=== PATIENT | female | born 1950 | race Caucasian/White ===

== ENCOUNTER 2022-07-24 22:30 | Inpatient (IN) | payer MEDICARE, OTHER, SELFPAY ==
[2022-07-24 22:41] VITALS: BP 134/98; PULSE 143; RESP 32; TEMP 37.2; O2SAT 93; BMI 32.0
[2022-07-24 23:06] VITALS: BP 125/84; PULSE 143; RESP 28; TEMP 37.2; O2SAT 94
--- NOTE | 2022-07-24 23:06 | CRLHL7_ITS ---
For Patients: As a result of the Century Cures Act, medical imaging exams and procedure reports are released immediately into your electronic medical record. You may view this report before your referring provider. If you have questions, please contact your health care provider. INDICATION: Shortness of breath TECHNIQUE: Single view chest. Comparison 01/14/2020 chest x-ray FINDINGS: The lungs are clear. The heart, mediastinum and pulmonary vessels are of normal size. There is no evidence of pleural disease. IMPRESSION: Negative chest. Dictated by Leslie Portillo MD @ 07/25/2022 12:40:26 AM (Electronically Signed)
--- NOTE | 2022-07-24 23:06 | PM.IMHP1 ---
Hospitalist- H&P: HPI History of Present Illness Date Seen: 07/25/22 Chief complaint: Hard time breathing, copd/fever at 104.2 Narrative: Marguerite Almaraz is a 72 year old female who was brought to the ER by her daughter for 2 days of illness. Marguerite started feeling poorly yesterday with a fever and headache. She has also had a cough and notes that her chest will occasionally burn during coughing paroxysms. Today, she began having more shortness of breath. She used nebs an Aleve for symptom management. Daughter came to visit to do a home COVID test (which was negative), and noted that her mom felt very warm. Temporal temperature at that time was 104. They gave Marguerite Tylenol and came to the emergency department. ED Course and findings: - tachypneic and tachycardic on ED arrival - mildly elevated CO2 on ABG - given a neb and 125mg of Solumedrol - Metoprolol 5mg IV for tachycardia, effective - + for Influenza A Patient has a long history of oxygen dependent COPD. She typically wears 2 L of supplemental oxygen at home, turned this up to 3 L prior to ER arrival. She has had multiple COPD hospitalizations, has never required intubation. She had previously seen Pulmonology at [place], now has COPD medications managed by her PCP, Dr. Davis - on daily Prednisone and Azithyromycin, in addition to Symbicort and nebs. Notes no history of heart disease, but TTE in 2016 exhibited mildly reduced LVEF at 50-55%. Metoprolol has been added to her medication regimen as an outpatient for sinus tachycardia. Lives with her son, daughter Kelly would be medical decision maker if needed. Patient is a former smoker, nonETOH user. Marguerite requests Full Code status after discussing risks/benefits of intubation. She has anxiety and doesn't know if she would tolerate BIPAP well. Review of Systems Status of ROS: Reports: 10 or more systems reviewed and unremarkable except as noted in History and below Narrative: Patient specifically denies any GI concerns or chest pain. She has chronically dry skin. [facility] Medical History (Updated 07/25/22 @ 00:49 by Bailey Garcia MD) Chest wall pain CHF (congestive heart failure) Chronic sinusitis Community acquired pneumonia (04/26/13) Congestive heart failure COPD (chronic obstructive pulmonary disease) Encounter for counseling regarding advance directives (05/10/19) Herpes labialis Hyperlipidemia Long-term current use of steroids MRSA (methicillin resistant staph aureus) culture positive On home O2 Otitis media Sinus tachycardia Tubular adenoma of colon Surgical History History of colonoscopy History of hysterectomy (04/26/13) Family History Mother Alzheimers disease Sister Crohn's disease Multiple sclerosis Father Diabetes Heart disease Other Colon cancer Social History Narrative: SOCIAL HISTORY: She is as of about 3 years ago. She is retired from [employer]. She is here with her sister as usual. They are very close. She continues to live in [place]. Four children. HABITS: No tobacco, alcohol, recreational drug use. No regular exercise. She is able to walk the as of a grocery store if she goes slowly. She is on oxygen. FAMILY HISTORY: Sister from multiple sclerosis in COPD 2 years ago. Another siblings with Crohn's disease. Mother of Alzheimer's. Father with heart issues, diabetes, pacemaker. He of unknown cause. Smoking Status: Never smoker Little interest or pleasure in doing things: not at all Feeling down, depressed, or hopeless: not at all Meds Home Medications and Allergies Home Medications Medication Instructions Recorded Confirmed Type azithromycin 250 mg tablet 250 mg PO DAILY 07/24/22 07/24/22 History prednisone 5 mg tablet 5 mg PO DAILY 07/24/22 07/24/22 History Home Medication Comments: - incomplete list. Also on Metoprolol 25mg BID and Symbicort + prn Duonebs and Albuterol Allergies Allergy/AdvReac Type Severity Reaction Status Date / Time atorvastatin Allergy Mild Muscle Verified 06/01/22 13:37 pain and weakness Exam Narrative: Exam Narrative: GEN: Alert and sitting in hospital bed. She is tachypneic, able to provide 2-3 word answers CV: Sinus tachycardia with rate in the 130s, no murmurs noted R: Tachypnea, decreased breath sounds bilateral bases. No rales Ext: wwp, no concerning edema Skin: Scattered bruising on upper extremities, no ankle edema Neuro: No focal deficits Psych: Appropriate Const: Vital Signs, click to edit/add: Vital Signs - 24 hr 07/24/22 22:41 07/24/22 22:39 Temperature 99.0 F Pulse Rate [Right Pulse Oximeter] 143 H Respiratory Rate 32 H Blood Pressure [Ri ght Upper Arm] 134/98 H Pulse Oximetry 93 Oxygen Delivery Me thod Nasal Cannula Nasal Cannula Oxygen Flow Rate 2 Assessment and Plan Assessment and plan (1) Acute on chronic respiratory failure with hypoxia and hypercapnia: Problem comment: - typically wears supplemental oxygen at 2 L per nasal cannula Status: Acute (2) Chronic obstructive pulmonary disease: Problem comment: - GOLD D - Has seen [facility] in the past Status: Acute (3) Sinus tachycardia: Problem comment: - chronic, on Metoprolol BID as an outpatient. Missed dose 07/24 HS, given IV Metoprolol in ED Status: Acute (4) Long-term current use of steroids: Status: Acute (5) Influenza A: Problem comment: - Tamiflu initiated 07/25 0100 Status: Acute Plan - admit to the hospital - high dose steroids, Tamiflu, home COPD medications + prn neb treatments - given severe disease in daily prednisone use as an outpatient, will treat with Zosyn - SCDs and Lovenox for prophylaxis - full code status requested - daughter Kelly updated at bedside, questions answered
[2022-07-24 23:07] VITALS: RESP 28; O2SAT 2
--- OUTSIDE RECORDS SUMMARY | 2022-07-24 23:18 | XMS_ITS | Clinical Summary ---
:1950 Author Organization [facility] [place] [address] Care Team Providers Name Role Phone Palomo Davis MD Primary Care Provider Allergies No known active allergies Medications Medication Sig Dispensed Refills Start Date End Date Status PROAIR HFA 90 0 05/27/2015 Activ e mcg/actuation inhaler SYMBICORT 80-4.5 0 05/15/2015 Ac tive mcg/actuation (80-4.5 mcg each actuation) inhaler MICROSPACER 0 05/15/2015 Active albuterol-ipratropium 0 06/03/2015 Active (DUONEB) (2.5-0.5 mg) in 3 mL NEBULIZATION solution predniSONE (DELTASONE) Take 1 tablet by 0 06/27/2018 Active 5 mg tablet mouth once daily with a meal. Active Problems Problem Noted Date Hyperopia of both eyes with astigmatism and presbyopia 01/23/2021 Nuclear senile cataract of both eyes 06/27/2018 Family History Medical History Relation Name Comments Genetic Other Father Diabetes Relation Name Status Comments Other Social History Tobacco Use Types Packs/Day Years Used Date Former Smoker Cigarettes 0.5 20 Quit: 06/07/20 14 Smokeless Tobacco: Never Used Comments: Smoking History Packs/day: .5p pd Alcohol Use Standard Drinks/Week Comments Not Asked 0 (1 standard drink = 0.6 oz pure alcoho l) Sex Assigned at Date Recorded Not on file Obstetrics History Last Filed Vital Signs Vital Sign Reading Time Taken Comments Blood Pressure 124/79 06/27/2018 2:58 PM PATIENT SERVICE SPECIALIST Pulse 91 06/27/2018 2:58 PM PATIENT SERVICE SPECIALIST Temperature - - Respiratory Rate - - Oxygen Saturation - - Inhaled Oxygen Concentration - - Weight - - Height - - Body Mass Index - - Plan of Treatment Health Maintenance Due Date Last Done Comments COVID-19 vaccine series (#1) 1950 Tdap 01/04/1963 Depression screening for age 12+ 1964 BMI (ht and wt on same day) for age 18+ 01/04/1970 Hepatitis C screening for age 18-79 01/04/1970 Tetanus booster 1972 Colonoscopy through age 75 01/04/1997 Lipids for age 45-75 01/04/1997 Mammogram for age 45-75 01/04/1997 Zoster (shingles) series for age 50+ (1 of 2) 01/04/2002 DEXA/DXA scan for age 65+ 01/04/2017 Medicare Wellness for age 65+ 01/04/2017 Pneumococcal series for age 65+ (1 - PCV) 01/04/2017 Influenza for age 65+ 04/16/2022 Results Not on filefrom Last 3 Months Insurance Payer Benefit Plan / Subscriber ID Effective Dates Phone Addre ss Type Group MEDICARE - PB MEDICARE PB ONLY [id number] 2016-[employer] ATTN: CLAIMS USE ONLY t [address] [facility] [place] [phone] COMM[employer]CIAL COMMERCIAL [id number] 2018-Presen [address] [place] [address] Care Teams Mandrel Puller Relationship Specialty Start Date End Date Palomo Davis MD PCP - General Family Practice 06/27/[address] [place] [phone]
[2022-07-24] MEDS: IPRAT-ALBUT 0.5-2.5 MG/3 ML NEB 1 NEB IH (23:34)
[2022-07-24] MEDS: METHYLPREDNISOLONE SOD SUCC 62.5 MG/ML (125) 125 MG IVP (23:34)
[2022-07-24 23:46] LABS: ABG PCO2 51 mmHG (35-45); Base Excess ABG 7.2 mmol/L (-3.0-3.0); Carboxyhemoglobin* 1.1 % (0.0-5.0); HCO3 ABG 33 mmol/L (21-28); Lactate* 0.9 mmol/L (0.5-1.9); Oxygen Saturation ABG 96 % (92-100); PO2 ABG 72.2 mmHG (80-105); TCO2 ABG 29 mmol/l (21-30); pH ABG 7.42 (7.35-7.45)
[2022-07-24 23:51] LABS: Basophils Percent Auto 0.1 % (0.0-3.0); Eosinophils Percent Auto 0.1 % (0.0-7.0); Hematocrit 43.7 % (33.0-51.0); Hemoglobin* 13.9 gm/dL (12.0-16.0); Immature Granulocytes Pct Auto 0.9 %; Lymphocytes Percent Auto 3.8 % (20-44); Mean Corpuscular HGB Conc 32 gm/dL (32-36); Mean Corpuscular Hemoglobin 29 pg (26-34); Mean Corpuscular Volume 92 fL (80-100); Monocytes Percent Auto 7.6 % (0.0-11.0); Neutrophils Percent Auto 87.5 % (42.0-72.0); Platelet Count* 178 K/uL (140-440); Red Blood Count 4.74 m/uL (4.00-5.20); White Blood Count* 14.89 K/uL (4.50-11.00)
[2022-07-24 23:55] VITALS: PULSE 130; O2SAT 92
[2022-07-24 23:57] LABS: Slide Review Reflex No
[2022-07-25] VITALS (18 sets, daily range): BP systolic 114–151; BP diastolic 64–97; PULSE 73–143; RESP 18–34; TEMP 36.6–37.2; O2SAT 89–95; BMI 31.0
[2022-07-25] MEDS: METOPROLOL TARTRATE 1 MG/ML inj 5 MG IVP (00:04)
[2022-07-25] MEDS: ACETAMINOPHEN 500 MG TABLET PO (00:04)
[2022-07-25 00:09] LABS: Chloride* 93 mmol/L (96-114)
[2022-07-25 00:10] LABS: Potassium* 3.7 mmol/L (3.6-5.1); Sodium* 134 mmol/L (135-149)
[2022-07-25 00:12] LABS: Creatinine* 0.9 mg/dL (0.5-1.5); Estimated Glomerular Filt Rate 69 ml/min
[2022-07-25 00:13] LABS: Blood Urea Nitrogen* 14 mg/dL (7-30); Carbon Dioxide* 34 mmol/L (20-32); Glucose* 130 mg/dL (60-115)
[2022-07-25 00:14] LABS: Calcium* 9.3 mg/dL (8.4-10.6)
[2022-07-25 00:16] LABS: C Reactive Protein* 6.9 mg/dL (0.5-1.0)
--- NOTE | 2022-07-25 00:25 | ED.SOB ---
HPI - SOB/Dyspnea General Date Seen: 07/24/22 Chief Complaint: Shortness of Breath/Dyspnea Stated Complaint: Hard time breathing, copd/fever at 104.2 Time Seen by Provider: 07/24/22 22:49 Source: patient and family Mode of arrival: ambulatory Limitations: no limitations History of Present Illness HPI Narrative: Patient is 72-year-old female with known COPD on chronic oxygen 2-3 L, presents here with worsening of her shortness of breath, and fever at home of 102 taken temporally. She did not receive the flu shot this year and she has only had 2 of her total immunizations for COVID. She has a chronic steroid user, has not really been hospitalized for her COPD, for the last 5 years. She is also on chronic Zithromax. Denies shortness of breath nausea vomiting leg swelling, does have a bit of a sore throat and runny nose and a cough. MD elicited complaint: shortness of breath and cough Pertinent past history: COPD Onset (ago): day(s) Timing: constant Severity: moderate Exacerbating factors: lying flat Relieving factors: bronchodilators and upright position Known history of: COPD Related Data Home oxygen amount: 2 liters Home Medications Medication Instructions Recorded Confirmed azithromycin 250 mg tablet 250 mg PO DAILY 07/24/22 07/24/22 prednisone 5 mg tablet 5 mg PO DAILY 07/24/22 07/24/22 Previous Rx's Medication Instructions Recorded albuterol sulfate 90 mcg/actuation 2 puff inhalation Q4-6H PRN 06/01/22 aerosol inhaler shortness of breath or wheezing #8.5 grams budesonide-formoterol HFA 160 2 puff inhalation BID #3 ea 06/01/22 mcg-4.5 mcg/actuation aerosol inhaler ipratropium 0.5 mg-albuterol 3 mg 1 ml inhalation QID #360 mL 06/01/22 (2.5 mg base)/3 mL nebulization soln metoprolol tartrate 25 mg tablet 25 mg PO BID #180 tabs 06/01/22 Allergies Allergy/AdvReac Type Severity Reaction Status Date / Time atorvastatin Allergy Mild Muscle Verified 06/01/22 13:37 pain and weakness Review of Systems Status of ROS: Reports: 10 or more systems reviewed and unremarkable except as noted in History and below [facility] Medical History (Updated 07/25/22 @ 01:04 by Lacho Sandoval MD) Chest wall pain CHF (congestive heart failure) Chronic sinusitis Community acquired pneumonia (04/26/13) Congestive heart failure COPD (chronic obstructive pulmonary disease) Encounter for counseling regarding advance directives (05/10/19) Herpes labialis Hyperlipidemia Long-term current use of steroids MRSA (methicillin resistant staph aureus) culture positive On home O2 Otitis media Sinus tachycardia Tubular adenoma of colon Surgical History History of colonoscopy History of hysterectomy (04/26/13) Family History Mother Alzheimers disease Sister Crohn's disease Multiple sclerosis Father Diabetes Heart disease Other Colon cancer Social History Narrative: SOCIAL HISTORY: She is as of about 3 years ago. She is retired from [employer]. She is here with her sister as usual. They are very close. She continues to live in [place]. Four children. HABITS: No tobacco, alcohol, recreational drug use. No regular exercise. She is able to walk the as of a grocery store if she goes slowly. She is on oxygen. FAMILY HISTORY: Sister from multiple sclerosis in COPD 2 years ago. Another siblings with Crohn's disease. Mother of Alzheimer's. Father with heart issues, diabetes, pacemaker. He of unknown cause. Smoking Status: Never smoker Little interest or pleasure in doing things: not at all Feeling down, depressed, or hopeless: not at all Exam Narrative: Exam Narrative: Patient is seen in room 8, she is able to talk to me in almost full sentences, pupils are equal round reactive to light, TMs are normal oropharynx is normal, a bit of a alexi complexion, I can hear air flow bilaterally in her lungs, I do not hear any wheezing, and she overall she has poor or prolonged expiratory phase, she also has a barrel chest, heart sounds S1-S2 are normal, she appears to be tachycardic but I do not hear any murmurs. Her abdomen is soft there is no guarding no organomegaly, no tenderness to palpation, no masses, lower extremities reveal no pitting edema swelling, she was all extremities independently well, with normal power proximally and distally, skin reveals no petechiae rashes, she is alert and oriented x3. Const: Vital Signs, click to edit/add: Vital Signs - 24 hr 07/24/22 22:41 07/24/22 22:39 07/24/22 23:07 Temperature 99.0 F Pulse Rate Pulse Rate [Right Pulse Oximeter] 143 H Respiratory Rate 32 H 28 H Blood Pressure Blood Pressure [Ri ght Upper Arm] 134/98 H Pulse Oximetry 93 2 L Oxygen Delivery Me thod Nasal Cannula Nasal Cannula Nasal Cannula Oxygen Flow Rate 2 2 07/24/22 23:55 07/25/22 00:00 07/25/22 00:04 Temperature Pulse Rate 130 H 122 H 125 H Pulse Rate [Right Pulse Oximeter] Respiratory Rate Blood Pressure 126/71 Blood Pressure [Ri ght Upper Arm] Pulse Oximetry 92 92 91 Oxygen Delivery Me thod Oxygen Flow Rate 07/25/22 00:05 07/25/22 00:15 07/24/22 23:06 Temperature 99.0 F Pulse Rate 124 H 101 H Pulse Rate [Right Pulse Oximeter] 143 H Respiratory Rate 28 H Blood Pressure Blood Pressure [Ri ght Upper Arm] 125/84 Pulse Oximetry 92 94 94 Oxygen Delivery Me thod Nasal Cannula Oxygen Flow Rate 2 Documenting provider has reviewed patient's vital signs: yes Course Reevaluation(s) Reevaluation #1: I had from [facility] come and see her, she will admit her overnight to the hospital, for nebulize treatments, stress dose steroids, Tamiflu, further treatment Vital Signs Vital signs: Initial Vital Signs Oxygen Delivery Method 07/24/22 22:39 Oxygen Flow Rate 2 07/24/22 22:39 Vital Signs Oxygen Delivery Method 07/24/22 22:39 Oxygen Flow Rate 2 07/24/22 22:39 Temperature 97.8 F 07/25/22 01:26 Pulse Rate 143 H 07/25/22 01:11 Respiratory Rate 28 H 07/25/22 01:11 Blood Pressure 125/84 07/25/22 01:11 Pulse Oximetry 94 07/25/22 00:44 Oxygen Delivery Method 07/24/22 23:07 Oxygen Flow Rate 2 07/24/22 23:07 MDM - SOB/Dyspnea MDM Narrative Medical decision making narrative: Life-threatening differential diagnosis includes occluded COPD exacerbation, pulmonary edema, acute coronary syndromes, pulmonary embolism, pneumonia, and pneumothorax. Other differential diagnosis considerations include asthma, bronchitis as well as other etiologies Medical Records Attestation: I reviewed the patient's medical records. Lab Data Attestation: I reviewed the patient's lab results. Labs: Lab Results 07/24/22 07/24/22 07/24/22 Range/Units 22:38 23:25 23:30 WBC 14.89 H (4.50-11.00) K/uL RBC 4.74 (4.00-5.20) m/uL Hgb 13.9 (12.0-16.0) gm/dL Hct 43.7 (33.0-51.0) % MCV 92 (80-100) fL MCH 29 (26-34) pg MCHC 32 (32-36) gm/dL RDW Coeff of Wilian 12.0 (11.5-15.5) % Plt Count 178 (140-440) K/uL Neut % (Auto) 87.5 H (42.0-72.0) % Lymph % (Auto) 3.8 L (20-44) % [place] % (Auto) 7.6 (0.0-11.0) % Eos % (Auto) 0.1 (0.0-7.0) % Baso % (Auto) 0.1 (0.0-3.0) % Neut # (Auto) 13.00 H (1.7-7.0) K/uL Lymph # (Auto) 0.60 L (0.90-2.90) K/uL [place] # (Auto) 1.10 H (0.00-0.90) K/UL Eos # (Auto) 0.00 (0.00-0.50) K/uL Baso # (Auto) 0.00 (0.00-0.30) K/uL Abs Immat Gran (auto) 0.10 (0.00-0.30) K/uL Imm/Tot Granulo (auto) 0.9 % ABG pH (7.35-7.45) ABG pCO2 (35-45) mmHG ABG pO2 (80-105) mmHG ABG HCO3 (21-28) mmol/L ABG Total CO2 (21-30) mmol/l ABG O2 Saturation (92-100) % ABG Base Excess (-3.0-3.0) mmol/L Carboxyhemoglobin (0.0-5.0) % Sodium (135-149) mmol/L Potassium (3.6-5.1) mmol/L Chloride (96-114) mmol/L Carbon Dioxide (20-32) mmol/L BUN (7-30) mg/dL Creatinine (0.5-1.5) mg/dL Estimated Creat Clear Estimated GFR ml/min Glucose (60-115) mg/dL Lactate (0.5-1.9) mmol/L Calcium (8.4-10.6) mg/dL C-Reactive Protein (0.5-1.0) mg/dL NT-Pro-B Natriuret Pep pg/mL Procalcitonin (<0.50) ng/mL SARS-CoV-2 (PCR) Negative SARS-CoV-2 (Negative) Influenza Type A (PCR) POSITIVE PCR FLU A A (Negative) Influenza Type B (PCR) Negative PCR FLU B (Negative) RSV (PCR) Negative PCR RSV (Negative) POC Troponin I 0.00 L (0.01-0.04) ng/ml 07/24/22 07/24/22 Range/Units 23:30 23:30 WBC (4.50-11.00) K/uL RBC (4.00-5.20) m/uL Hgb (12.0-16.0) gm/dL Hct (33.0-51.0) % MCV (80-100) fL MCH (26-34) pg MCHC (32-36) gm/dL RDW Coeff of Wilian (11.5-15.5) % Plt Count (140-440) K/uL Neut % (Auto) (42.0-72.0) % Lymph % (Auto) (20-44) % [place] % (Auto) (0.0-11.0) % Eos % (Auto) (0.0-7.0) % Baso % (Auto) (0.0-3.0) % Neut # (Auto) (1.7-7.0) K/uL Lymph # (Auto) (0.90-2.90) K/uL [place] # (Auto) (0.00-0.90) K/UL Eos # (Auto) (0.00-0.50) K/uL Baso # (Auto) (0.00-0.30) K/uL Abs Immat Gran (auto) (0.00-0.30) K/uL Imm/Tot Granulo (auto) % ABG pH 7.42 (7.35-7.45) ABG pCO2 51 H (35-45) mmHG ABG pO2 72.2 L (80-105) mmHG ABG HCO3 33 H (21-28) mmol/L ABG Total CO2 29 (21-30) mmol/l ABG O2 Saturation 96 (92-100) % ABG Base Excess 7.2 H (-3.0-3.0) mmol/L Carboxyhemoglobin 1.1 (0.0-5.0) % Sodium 134 L (135-149) mmol/L Potassium 3.7 (3.6-5.1) mmol/L Chloride 93 L (96-114) mmol/L Carbon Dioxide 34 H (20-32) mmol/L BUN 14 (7-30) mg/dL Creatinine 0.9 (0.5-1.5) mg/dL Estimated Creat Clear 41.40 Estimated GFR 69 ml/min Glucose 130 H (60-115) mg/dL Lactate 0.9 (0.5-1.9) mmol/L Calcium 9.3 (8.4-10.6) mg/dL C-Reactive Protein 6.9 H (0.5-1.0) mg/dL NT-Pro-B Natriuret Pep 562 pg/mL Procalcitonin 0.30 (<0.50) ng/mL SARS-CoV-2 (PCR) (Negative) Influenza Type A (PCR) (Negative) Influenza Type B (PCR) (Negative) RSV (PCR) (Negative) POC Troponin I (0.01-0.04) ng/ml ABG Data Attestation: I personally reviewed and interpreted this ABG as follows: ECG Data Attestation: I personally reviewed and interpreted this ECG as follows: ECG interpretation date: 07/25/22 Prior ECG tracings: not available for review Interpretation: EKG shows sinus tachycardia, at 137, Discharge Plan Discharge Clinical Impression: Influenza A, Acute exacerbation of chronic obstructive pulmonary disease Patient Disposition: Admitted As Inpatient Condition: Improved
[2022-07-25 00:28] LABS: NT Pro B Type NatriureticPept* 562 pg/mL
[2022-07-25] MEDS: PIPERACILLIN/TAZOBACTAM 3.375 GM in 0.9 % SODIUM CHLORIDE Mini-bag 100 ML IVPB ×4 (00:36→18:19)
[2022-07-25 00:42] LABS: PCR FLU A POSITIVE PCR FLU A (Negative); PCR FLU B Negative PCR FLU B (Negative); PCR RSV Negative PCR RSV (Negative); SARS PCR* Negative SARS-CoV-2 (Negative)
[2022-07-25] MEDS: OSELTAMIVIR 30 MG CAPSULE PO ×3 (01:46→20:47)
[2022-07-25 04:13] LABS: INR 0.95 (0.91-1.10); Prothrombin Time 13.2 Seconds
[2022-07-25 04:14] LABS: D Dimer Quantitative* < 0.02 ug/ml (0.00-0.50); Partial Thromboplastin Time* 33 Seconds (23-33)
[2022-07-25] MEDS: METHYLPREDNISOLONE SOD SUCC 62.5 MG/ML (125) 125 MG IVP (04:46)
--- NOTE | 2022-07-25 06:00 | PC.NURSE ---
Patient to unit at 0110. Pleasant and cooperative. SOB at rest and w/exertion. Chronic 2Lt O2 use. Daughter Kelly at bedside and supportive. A&Ox3. Afebrile. Denies pain.
[2022-07-25] MEDS: SODIUM CHLORIDE 0.9 % (FLUSH) 10 ML SYRINGE 5 ML IVF ×3 (06:11→20:48)
[2022-07-25] MEDS: 0.9 % SODIUM CHLORIDE 250 ml IV (06:12)
[2022-07-25 07:36] LABS: Appearance Urine Clear (Clear); Bilirubin Urine Negative (Negative); Blood Urine 2+ (Negative); Color Urine Yellow (Yellow); Glucose Urine Negative (Negative); Ketones Urine Negative (Negative); Leukocyte Esterase Urine Negative (Negative); Nitrite Urine Negative (Negative); Protein Urine Negative (Negative); Specific Gravity Urine <= 1.005 (1.000-1.030); Urobilinogen Urine 0.2 (0.2-1.0); pH Urine 5.5 (5.0-8.5)
[2022-07-25] MEDS: predniSONE 20 MG TABLET 60 MG PO (08:06)
[2022-07-25 09:03] LABS: Bacteria Urine Few; Squamous Epithelial Cell Urine Few (None-Few); WBC Urine 0-2 (0-5)
[2022-07-25] MEDS: ENOXAPARIN 40 MG/0.4 ML INJ SUBCUT (09:25)
[2022-07-25] MEDS: METOPROLOL TARTRATE 25 MG TABLET PO ×2 (09:26→20:47)
--- NOTE | 2022-07-25 11:06 | RESP.RT ---
Patient on home oxygen 08/03. patient lying in bed, breathing regular/easy, SaO2 93%. BBS with good air movement all recio, end expiratory slight squeak noted.
[2022-07-25] MEDS: ALBUTEROL INHALER 2 PUFF IH ×3 (12:17→19:10)
[2022-07-25] MEDS: IPRAT-ALBUT 0.5-2.5 MG/3 ML NEB 1 NEB IH ×2 (12:23→17:50)
--- NOTE | 2022-07-25 12:49 | P.IMPN_ITS ---
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 (6) Congestive heart failure: Problem details: EF of 50-55% on 2016 TTE Status: Chronic Assessment and Plan: Stable Plan This is a 72-year-old female with chronic oxygen and prednisone dependent COPD came in with an acute on chronic respiratory failure complicated by influenza infection. I have reviewed her chart including notes, radiology reports, labs, and medications. She was started on Tamiflu, high-dose steroids, Zosyn and p.r.n. neb treatments. RT has seen her today in consult. I have ordered vibratory pep. While she has improved slightly overnight, I think she will need at least another night possibly 2 before she is well enough to be discharged home. Additionally I will review her oxygen order parameters as I believe she is at risk for CO2 retention. Continue SCDs with low-dose nightly Lovenox for VTE prophylaxis. I had a discussion with the patient today about her COPD history, diagnosis and management of influenza as well as management of COPD exacerbation and my recommendations for visiting her dentist to talk about and follow leukoplakia. Time Spent With Patient Total time spent: Today I spent 35 minutes rounding on the patient. Greater than 50% included discussing past medical history, influenza, and COPD with the patient, reviewing data, updating and managing the care plan. Subjective Time Seen by Provider: 11:47 Date Seen: 07/25/22 Interval history: Sonia tells me she was having fever, aches, and worsening SOB at home. She is feeling a bit better today, but still having a cough and some SOB worse than baseline. She takes chronic daily prednisone 5 mg/day and uses 2 L/min continuous oxygen via NC at home. She also complains of a spot on her right tongue that she bit about a month ago and it has been persistent since then. She does not have a dentist and has not seen 1 in a very long time. Exam Narrative: Exam Narrative: General: No acute distress. Able to talk in full sentences, although I do note that her oxygen saturations started to drop after a few sentences. Awake, alert, oriented x3. No pallor. No jaundice. Oropharynx: 2 mm diameter area of leukoplakia on mid lateral right tongue. No ulceration, erythema, or bleeding. Mucous membranes moist. Cardiovascular: Regular rate and rhythm. No murmurs, gallops, or rubs. Respiratory: Tight, expiratory wheezes throughout. Abdomen: Bowel sounds present. Soft, nondistended, nontender. Extremities: No pedal edema. Const: Vital Signs, click to edit/add: Vital Signs - 24 hr 07/24/22 22:41 07/24/22 22:39 07/24/22 23:07 Temperature 99.0 F Pulse Rate Pulse Rate [Right Pulse Oximeter] 143 H Pulse Rate [Right] Respiratory Rate 32 H 28 H Blood Pressure Blood Pressure [Le ft Arm] Blood Pressure [Ri ght Upper Arm] 134/98 H Pulse Oximetry 93 2 L Oxygen Delivery Me thod Nasal Cannula Nasal Cannula Nasal Cannula Oxygen Flow Rate 2 2 07/24/22 23:55 07/25/22 00:00 07/25/22 00:04 Temperature Pulse Rate 130 H 122 H 125 H Pulse Rate [Right Pulse Oximeter] Pulse Rate [Right] Respiratory Rate Blood Pressure 126/71 Blood Pressure [Le ft Arm] Blood Pressure [Ri ght Upper Arm] Pulse Oximetry 92 92 91 Oxygen Delivery Me thod Oxygen Flow Rate 07/25/22 00:05 07/25/22 00:15 07/25/22 00:44 Temperature Pulse Rate 124 H 101 H Pulse Rate [Right Pulse Oximeter] Pulse Rate [Right] Respiratory Rate Blood Pressure Blood Pressure [Le ft Arm] Blood Pressure [Ri ght Upper Arm] Pulse Oximetry 92 94 94 Oxygen Delivery Me thod Oxygen Flow Rate 07/24/22 23:06 07/25/22 01:11 07/25/22 01:26 Temperature 99.0 F 99.0 F 97.8 F Pulse Rate Pulse Rate [Right Pulse Oximeter] 143 H 143 H Pulse Rate [Right] Respiratory Rate 28 H 28 H Blood Pressure Blood Pressure [Le ft Arm] Blood Pressure [Ri ght Upper Arm] 125/84 125/84 Pulse Oximetry 94 Oxygen Delivery Me thod Nasal Cannula Oxygen Flow Rate 2 07/25/22 00:44 07/25/22 02:54 07/25/22 02:54 Temperature 97.8 F 97.8 F Pulse Rate Pulse Rate [Right Pulse Oximeter] Pulse Rate [Right] 106 H 106 H Respiratory Rate 26 H 28 H 26 H Blood Pressure Blood Pressure [Le ft Arm] 129/84 129/84 Blood Pressure [Ri ght Upper Arm] Pulse Oximetry 94 94 94 Oxygen Delivery Me thod Nasal Cannula Nasal Cannula Nasal Cannula Oxygen Flow Rate 3.0 3.0 3.0 07/25/22 03:00 07/25/22 03:00 07/25/22 07:00 Temperature 98.1 F Pulse Rate 90 77 Pulse Rate [Right Pulse Oximeter] Pulse Rate [Right] 90 Respiratory Rate 22 Blood Pressure Blood Pressure [Le ft Arm] 128/64 Blood Pressure [Ri ght Upper Arm] Pulse Oximetry 89 Oxygen Delivery Me thod Nasal Cannula Oxygen Flow Rate 2.0 07/25/22 07:00 07/25/22 07:00 07/25/22 07:00 Temperature Pulse Rate Pulse Rate [Right Pulse Oximeter] Pulse Rate [Right] 90 Respiratory Rate 20 20 Blood Pressure Blood Pressure [Le ft Arm] Blood Pressure [Ri ght Upper Arm] Pulse Oximetry 89 92 Oxygen Delivery Me thod Nasal Cannula Oxygen Flow Rate 2.0 07/25/22 07:00 07/25/22 11:02 07/25/22 11:00 Temperature 97.8 F 97.9 F Pulse Rate Pulse Rate [Right Pulse Oximeter] Pulse Rate [Right] 98 98 Respiratory Rate 20 34 H Blood Pressure Blood Pressure [Le ft Arm] 114/68 151/97 H Blood Pressure [Ri ght Upper Arm] Pulse Oximetry 92 93 95 Oxygen Delivery Me thod Nasal Cannula Nasal Cannula Nasal Cannula Oxygen Flow Rate 2.0 2 2 Documenting provider has reviewed patient's vital signs: yes Labs Labs: Laboratory Results - last 24 hr 07/24/22 07/24/22 07/24/22 22:38 23:25 23:30 WBC 14.89 H RBC 4.74 Hgb 13.9 Hct 43.7 MCV 92 MCH 29 MCHC 32 RDW Coeff of Wilian 12.0 Plt Count 178 Neut % (Auto) 87.5 H Lymph % (Auto) 3.8 L Mckean % (Auto) 7.6 Eos % (Auto) 0.1 Baso % (Auto) 0.1 Neut # (Auto) 13.00 H Lymph # (Auto) 0.60 L Mckean # (Auto) 1.10 H Eos # (Auto) 0.00 Baso # (Auto) 0.00 Abs Immat Gran (auto) 0.10 Imm/Tot Granulo (auto) 0.9 INR APTT D-Dimer Quant (PE/DVT) ABG pH ABG pCO2 ABG pO2 ABG HCO3 ABG Total CO2 ABG O2 Saturation ABG Base Excess Carboxyhemoglobin Sodium Potassium Chloride Carbon Dioxide BUN Creatinine Estimated Creat Clear Estimated GFR Glucose Lactate Calcium C-Reactive Protein NT-Pro-B Natriuret Pep Procalcitonin Urine Color Urine Appearance Urine pH Ur Specific Atkinson Urine Protein Urine Glucose (UA) Urine Ketones Urine Blood Urine Nitrite Urine Bilirubin Urine Urobilinogen Ur Leukocyte Esterase Urine RBC Urine WBC Ur Squamous Epith Cells Urine Bacteria SARS-CoV-2 (PCR) Negative SARS-CoV-2 Influenza Type A (PCR) POSITIVE PCR FLU A A Influenza Type B (PCR) Negative PCR FLU B RSV (PCR) Negative PCR RSV POC Troponin I 0.00 L 07/24/22 07/24/22 07/24/22 23:30 23:30 23:30 WBC RBC Hgb Hct MCV MCH MCHC RDW Coeff of Wilian Plt Count Neut % (Auto) Lymph % (Auto) Mckean % (Auto) Eos % (Auto) Baso % (Auto) Neut # (Auto) Lymph # (Auto) Mckean # (Auto) Eos # (Auto) Baso # (Auto) Abs Immat Gran (auto) Imm/Tot Granulo (auto) INR 0.95 APTT 33 D-Dimer Quant (PE/DVT) < 0.02 ABG pH 7.42 ABG pCO2 51 H ABG pO2 72.2 L ABG HCO3 33 H ABG Total CO2 29 ABG O2 Saturation 96 ABG Base Excess 7.2 H Carboxyhemoglobin 1.1 Sodium 134 L Potassium 3.7 Chloride 93 L Carbon Dioxide 34 H BUN 14 Creatinine 0.9 Estimated Creat Clear 41.40 Estimated GFR 69 Glucose 130 H Lactate 0.9 Calcium 9.3 C-Reactive Protein 6.9 H NT-Pro-B Natriuret Pep 562 Procalcitonin 0.30 Urine Color Urine Appearance Urine pH Ur Specific Atkinson Urine Protein Urine Glucose (UA) Urine Ketones Urine Blood Urine Nitrite Urine Bilirubin Urine Urobilinogen Ur Leukocyte Esterase Urine RBC Urine WBC Ur Squamous Epith Cells Urine Bacteria SARS-CoV-2 (PCR) Influenza Type A (PCR) Influenza Type B (PCR) RSV (PCR) POC Troponin I 07/25/22 06:00 WBC RBC Hgb Hct MCV MCH MCHC RDW Coeff of Wilian Plt Count Neut % (Auto) Lymph % (Auto) Mckean % (Auto) Eos % (Auto) Baso % (Auto) Neut # (Auto) Lymph # (Auto) Mckean # (Auto) Eos # (Auto) Baso # (Auto) Abs Immat Gran (auto) Imm/Tot Granulo (auto) INR APTT D-Dimer Quant (PE/DVT) ABG pH ABG pCO2 ABG pO2 ABG HCO3 ABG Total CO2 ABG O2 Saturation ABG Base Excess Carboxyhemoglobin Sodium Potassium Chloride Carbon Dioxide BUN Creatinine Estimated Creat Clear Estimated GFR Glucose Lactate Calcium C-Reactive Protein NT-Pro-B Natriuret Pep Procalcitonin Urine Color Yellow Urine Appearance Clear Urine pH 5.5 Ur Specific Atkinson <= 1.005 Urine Protein Negative Urine Glucose (UA) Negative Urine Ketones Negative Urine Blood 2+ A Urine Nitrite Negative Urine Bilirubin Negative Urine Urobilinogen 0.2 Ur Leukocyte Esterase Negative Urine RBC 2-5 A Urine WBC 0-2 Ur Squamous Epith Cells Few Urine Bacteria Few A SARS-CoV-2 (PCR) Influenza Type A (PCR) Influenza Type B (PCR) RSV (PCR) POC Troponin I
--- NOTE | 2022-07-25 14:08 | RESP.RT ---
PEP therapy with Aerobika; patient uses well, good effort, with good chest shake, promoted productive cough, small amount secretions. Had patient feel chest shake to help under stand use of Aerobika. Patient understands and verbally states so. Patient will self administer PRN treatment.
--- NOTE | 2022-07-25 14:09 | PC.NURSE ---
SOB with light activity. Neb given d/t RR 34 after up to BR with increased wheezing. pt has inhalers at bedside and notifies nurse when needing to use them. 02 at 2L per NC, this is chronic at home as well. Pio, RT in to see patient today.
[2022-07-25] MEDS: ACETAMINOPHEN 325 MG TABLET 975 MG PO (17:45)
--- NOTE | 2022-07-25 22:41 | PC.NURSE ---
Shift [id number]- Patient very SOB, moaning respirations with activity. She states relief from rescue inhaler. Breathing is unlabored at rest. She remains on 2L O2 NC with saturations in low 90s%. Slight wheezes ausculated.
[2022-07-26] VITALS (9 sets, daily range): BP systolic 110–164; BP diastolic 57–99; PULSE 61–94; RESP 18–24; TEMP 36.6–36.8; O2SAT 90–97
[2022-07-26] MEDS: PIPERACILLIN/TAZOBACTAM 3.375 GM in 0.9 % SODIUM CHLORIDE Mini-bag 100 ML IVPB ×4 (00:21→18:23)
[2022-07-26] MEDS: IPRAT-ALBUT 0.5-2.5 MG/3 ML NEB 1 NEB IH ×4 (00:22→23:11)
--- NOTE | 2022-07-26 05:18 | PC.NURSE ---
Shift note: Pt is doing well on 2L of oxygen. O2 level maintained above 90%. Minimal intermittent cough noted. Complained of backache of 4/10 and was effectively managed with Tylenol. SOB with activity noted. independent in room and able to make needs known.
[2022-07-26] MEDS: 0.9 % SODIUM CHLORIDE 250 ml IV (06:35)
[2022-07-26] MEDS: ALBUTEROL INHALER 2 PUFF IH ×2 (07:20→15:30)
[2022-07-26 07:26] LABS: Chloride* 100 mmol/L (96-114)
[2022-07-26 07:27] LABS: Potassium* 3.7 mmol/L (3.6-5.1); Sodium* 141 mmol/L (135-149)
[2022-07-26 07:29] LABS: Creatinine* 0.9 mg/dL (0.5-1.5); Estimated Glomerular Filt Rate 69 ml/min
[2022-07-26 07:30] LABS: Blood Urea Nitrogen* 19 mg/dL (7-30); Carbon Dioxide* 37 mmol/L (20-32); Glucose* 122 mg/dL (60-115)
[2022-07-26 07:33] LABS: C Reactive Protein* 8.1 mg/dL (0.5-1.0)
[2022-07-26] MEDS: predniSONE 20 MG TABLET 60 MG PO (08:43)
[2022-07-26] MEDS: ENOXAPARIN 40 MG/0.4 ML INJ SUBCUT (08:43)
[2022-07-26] MEDS: OSELTAMIVIR 30 MG CAPSULE PO ×2 (08:44→21:28)
[2022-07-26] MEDS: METOPROLOL TARTRATE 25 MG TABLET PO ×2 (08:44→21:28)
[2022-07-26] MEDS: SODIUM CHLORIDE 0.9 % (FLUSH) 10 ML SYRINGE 5 ML IVF ×2 (08:44→21:29)
[2022-07-26] MEDS: ALBUTEROL SULFATE 2.5 MG/3 ML VIAL.NEB NEB ×2 (09:35→17:26)
--- NOTE | 2022-07-26 13:05 | PM.IMPN1 ---
Progress Note: A&P Assessment and plan (1) Acute on chronic respiratory failure with hypoxia and hypercapnia: Problem details: - secondary to influenza and COPD exacerbation - typically wears supplemental oxygen at 2 L per nasal cannula - has been on her usual 2 liter/minute via nasal cannula for a little over 24 hours now Status: Acute (2) Influenza A: Problem details: - Tamiflu initiated 07/25 0100 Status: Acute (3) Acute exacerbation of chronic obstructive pulmonary disease: Problem details: Getting DuoNebs, p.r.n. albuterol nebs, Spiriva, high-dose daily prednisone and Zosyn. 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 Status: Acute (6) Congestive heart failure: Problem details: EF of 50-55% on 2016 TTE Status: Chronic Assessment and Plan: Stable Plan This is a 72-year-old female with chronic oxygen and prednisone dependent COPD came in with an acute on chronic respiratory failure complicated by influenza infection. She is on day 2 of Tamiflu, high-dose steroids, Zosyn, p.r.n. neb treatments, and vibratory pep. RT has seen her in consult. I have spoken with RT this morning and her nurse and have asked that she get another nebs this morning. This was helpful for her. Continue SCDs with low-dose nightly Lovenox for VTE prophylaxis. Subjective Time Seen by Provider: 09:21 Date Seen: 07/26/22 Interval history: Sonia complains that she feels worse this morning. She had pretty good day yesterday and night, but when the nurse came in this morning around 730 and she awoke for the day, she felt very tight. She got a DuoNeb in used her Spiriva inhaler, but continues to feel like it has been a rough morning. She denies any chest pain. Exam Narrative: Exam Narrative: General: Mild respiratory distress. Sitting upright on the side of the bed. Able to talk in short, but complete sentences. Awake, alert, oriented x3. No pallor. No jaundice. Cardiovascular: Regular rate and rhythm. No murmurs, gallops, or rubs. Respiratory: Tight, poor air movement, no wheezing. Abdomen: Bowel sounds present. Soft, nondistended, nontender. Extremities: No pedal edema. Const: Vital Signs, click to edit/add: Vital Signs - 24 hr 07/25/22 14:04 07/25/22 15:20 07/25/22 15:20 Temperature Pulse Rate Pulse Rate [Right] 105 H Respiratory Rate 22 Blood Pressure [Le ft Arm] Pulse Oximetry 90 94 Oxygen Delivery Me thod Nasal Cannula Oxygen Flow Rate 2 07/25/22 15:20 07/25/22 15:20 07/25/22 16:27 Temperature 98.2 F Pulse Rate 87 Pulse Rate [Right] 105 H Respiratory Rate 24 Blood Pressure [Le ft Arm] 134/73 Pulse Oximetry 94 94 Oxygen Delivery Me thod Nasal Cannula Nasal Cannula Oxygen Flow Rate 2 2 07/25/22 19:02 07/25/22 23:00 07/25/22 23:00 Temperature 98.6 F Pulse Rate 73 Pulse Rate [Right] 99 Respiratory Rate 18 Blood Pressure [Le ft Arm] 133/65 Pulse Oximetry 91 94 Oxygen Delivery Me thod Nasal Cannula Oxygen Flow Rate 2 07/25/22 23:00 07/25/22 23:00 07/25/22 23:00 Temperature 98.1 F Pulse Rate Pulse Rate [Right] 74 Respiratory Rate 18 18 18 Blood Pressure [Le ft Arm] 122/74 Pulse Oximetry 94 94 Oxygen Delivery Me thod Room Air Nasal Cannula Oxygen Flow Rate 2 07/25/22 23:05 07/26/22 03:00 07/26/22 07:50 Temperature 98 F Pulse Rate 76 Pulse Rate [Right] 74 Respiratory Rate 18 Blood Pressure [Le ft Arm] 110/57 L Pulse Oximetry 94 95 Oxygen Delivery Me thod Room Air Nasal Cannula Oxygen Flow Rate 2 07/26/22 07:15 07/26/22 07:15 07/26/22 07:15 Temperature 98.0 F Pulse Rate Pulse Rate [Right] 92 Respiratory Rate 18 18 Blood Pressure [Le ft Arm] 135/73 Pulse Oximetry 97 97 97 Oxygen Delivery Me thod Nasal Cannula Nasal Cannula Oxygen Flow Rate 2 2 07/26/22 07:15 07/26/22 11:20 Temperature 98.1 F Pulse Rate Pulse Rate [Right] 92 88 Respiratory Rate 18 18 Blood Pressure [Le ft Arm] 127/69 Pulse Oximetry 95 Oxygen Delivery Me thod Nasal Cannula Oxygen Flow Rate 2 Documenting provider has reviewed patient's vital signs: yes Labs Labs: Laboratory Results - last 24 hr 07/26/22 06:05 Sodium 141 Potassium 3.7 Chloride 100 Carbon Dioxide 37 H BUN 19 Creatinine 0.9 Estimated Creat Clear 43.30 Estimated GFR 69 Glucose 122 H Calcium 9.0 C-Reactive Protein 8.1 H
--- NOTE | 2022-07-26 15:15 | RESP.RT ---
Patient had Nebulize treatments X3 this AM prior to assessment. Patient does not like Aerobika states gives her sore throat.
[2022-07-26] MEDS: ACETAMINOPHEN 325 MG TABLET 975 MG PO (18:21)
[2022-07-26] MEDS: hydrOXYzine pamoate 25 MG CAPSULE PO (18:21)
--- NOTE | 2022-07-26 18:59 | PC.NURSE ---
End of shift/ pt has been very pleasant/ no pain, until end of shift she had pain in the back of her head. she is up ab qi with 2 L nc o2, she can reach the BR. she is on chronic 2L o2. she was wheezing and tight and diminished this am and got nebs as need. she gets very SOB and sounds terrible after any movement. RT did see her today. she has inhalers at bed side. SL was changed. she is eating, drinking and voiding. -.? Breathing is unlabored at rest, but she says she is SOB at times. Tele shows NSR and SA. IV Zosyn given.
[2022-07-27] VITALS (7 sets, daily range): BP systolic 128–159; BP diastolic 74–109; PULSE 64–97; RESP 20–28; TEMP 36.6–37; O2SAT 90–96
[2022-07-27] MEDS: PIPERACILLIN/TAZOBACTAM 3.375 GM in 0.9 % SODIUM CHLORIDE Mini-bag 100 ML IVPB ×3 (00:10→12:42)
--- NOTE | 2022-07-27 05:11 | PC.NURSE ---
[id number]: Patient pleasant and cooperative. Chronic 2Lt NC. Independent in room. SOB with activity. Denies pain. Denies CP/N/V. PRN nebs utilized. Afebrile. Frequent productive, moist cough. Patient with 1 exacerbation episode at 0530. Albuterol Neb, increased O2, reposition over bedside table, CDB, and pursed lip breathing utilized to return O2>88% and to 2 Lt.
[2022-07-27] MEDS: ALBUTEROL SULFATE 2.5 MG/3 ML VIAL.NEB NEB (05:36)
[2022-07-27] MEDS: 0.9 % SODIUM CHLORIDE 250 ml IV (06:15)
[2022-07-27] MEDS: SODIUM CHLORIDE 0.9 % (FLUSH) 10 ML SYRINGE 5 ML IVF ×2 (09:00→21:28)
[2022-07-27] MEDS: predniSONE 20 MG TABLET 60 MG PO (09:00)
[2022-07-27] MEDS: OSELTAMIVIR 30 MG CAPSULE PO ×2 (09:00→21:27)
[2022-07-27] MEDS: METOPROLOL TARTRATE 25 MG TABLET PO ×2 (09:00→21:27)
[2022-07-27] MEDS: ENOXAPARIN 40 MG/0.4 ML INJ SUBCUT (09:00)
--- NOTE | 2022-07-27 11:30 | RESP.RT ---
PT short of breath this AM. She is using inhalers at bedside with aerochamber. Spoke with MD about giving nebulizers at night. PT is in agreement and thinks this may help. Would do 2 at night, one at midnight, and one at 0400. See if this assists her for the morning.
[2022-07-27] MEDS: IPRAT-ALBUT 0.5-2.5 MG/3 ML NEB 1 NEB IH (13:56)
--- NOTE | 2022-07-27 15:59 | PM.IMPN1 ---
Progress Note: A&P Assessment and plan (1) Acute on chronic respiratory failure with hypoxia and hypercapnia: Problem details: - secondary to influenza and COPD exacerbation - typically wears supplemental oxygen at 2 L per nasal cannula - back to baseline O2 needs Status: Acute (2) Influenza A: Problem details: - Tamiflu initiated 07/25 100 Status: Acute (3) Acute exacerbation of chronic obstructive pulmonary disease: Problem details: Getting DuoNebs, p.r.n. albuterol nebs, Spiriva, high-dose daily prednisone and Zosyn. 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 Status: Acute (6) Congestive heart failure: Problem details: EF of 50-55% on 2016 TTE Status: Chronic Assessment and Plan: Stable Plan This is a 72-year-old female with chronic oxygen and prednisone dependent COPD came in with an acute on chronic respiratory failure complicated by influenza infection. She is on day 2 of Tamiflu, high-dose steroids, p.r.n. neb treatments, and vibratory pep. RT has seen her in consult. I have spoken with RT this morning. Start middle of the night duoneb scheduled since I think she is getting behind overnight with long period of sleeping without neb. Also, discontinue zosyn and start doxycycline. If she does well with middle of night neb, may be able to d/c home tomorrow. Continue SCDs with low-dose nightly Lovenox for VTE prophylaxis. Subjective Time Seen by Provider: 09:29 Date Seen: 07/27/22 Interval history: Marguerite complains of a bad morning again today. She is feeling better again now. Exam Narrative: Exam Narrative: General: No respiratory distress. Sitting upright on the side of the bed. Able to talk in complete sentences. Awake, alert, oriented x3. No pallor. No jaundice. Cardiovascular: Regular rate and rhythm. No murmurs, gallops, or rubs. Respiratory: Musical with inspiratory and expiratory wheezes. Better air movement today than yesterday. No crackles Const: Vital Signs, click to edit/add: Vital Signs - 24 hr 12/11/22 16:48 07/26/22 19:00 07/26/22 23:00 Temperature 98.3 F 98.1 F Pulse Rate 89 Pulse Rate [Pulse Oximeter] Pulse Rate [Right] 93 94 Respiratory Rate 22 24 Blood Pressure [Le ft Arm] 127/81 164/99 H Pulse Oximetry 94 94 Oxygen Delivery Me thod Nasal Cannula Nasal Cannula Oxygen Flow Rate 2 2 07/26/22 23:00 07/26/22 23:00 07/26/22 23:00 Temperature Pulse Rate 61 Pulse Rate [Pulse Oximeter] Pulse Rate [Right] Respiratory Rate 24 Blood Pressure [Le ft Arm] Pulse Oximetry 94 94 Oxygen Delivery Me thod Nasal Cannula Oxygen Flow Rate 2 07/27/22 03:00 07/26/22 23:00 07/27/22 08:07 Temperature Pulse Rate 64 Pulse Rate [Pulse Oximeter] Pulse Rate [Right] 65 Respiratory Rate 24 24 Blood Pressure [Le ft Arm] Pulse Oximetry 96 Oxygen Delivery Me thod Nasal Cannula Oxygen Flow Rate 2.0 07/27/22 08:58 07/27/22 08:58 07/27/22 08:58 Temperature 98.2 F Pulse Rate Pulse Rate [Pulse Oximeter] 85 Pulse Rate [Right] Respiratory Rate 28 H Blood Pressure [Le ft Arm] 156/97 H Pulse Oximetry 90 90 90 Oxygen Delivery Me thod Nasal Cannula Nasal Cannula Oxygen Flow Rate 2 2 07/27/22 12:55 07/27/22 15:00 07/27/22 15:00 Temperature 98.1 F Pulse Rate 97 Pulse Rate [Pulse Oximeter] 76 Pulse Rate [Right] Respiratory Rate 20 Blood Pressure [Le ft Arm] 128/74 Pulse Oximetry 92 94 Oxygen Delivery Me thod Nasal Cannula Oxygen Flow Rate 2 07/27/22 15:00 Temperature Pulse Rate Pulse Rate [Pulse Oximeter] Pulse Rate [Right] Respiratory Rate 20 Blood Pressure [Le ft Arm] Pulse Oximetry 94 Oxygen Delivery Me thod Nasal Cannula Oxygen Flow Rate 2 Documenting provider has reviewed patient's vital signs: yes
[2022-07-27] MEDS: ACETAMINOPHEN 325 MG TABLET 975 MG PO (18:43)
[2022-07-27] MEDS: DOXYCYCLINE HYCLATE 100 MG CAPSULE PO (21:27)
[2022-07-27] MEDS: MELATONIN 3 MG TABLET PO (21:27)
--- NOTE | 2022-07-27 22:04 | PC.NURSE ---
Shift Note: Pt friendly and cooperative. After walking back to her bed from the BR pt was visibly SOB, RR=28 and SpO2 dropped as low as 76% while pt was on 3L/O2 via NC. O2 increased to 4L, pt placed in tripod position at bedside, given Albuterol rescue inhaler, and duo-neb. SpO2 rebounded to 93% in 1-2 min. Pt again weaned to 3L at rest but encouraged to use call light prior to activity in the future. Pt verbalized understanding. VS otherwise stable, LS coarse/diminished. She also c/o of 6/10 dull ache to back of her head, PRN Tylenol given and pt verbalized complete relief. Mediocre appetite, ate 3/4 of an egg salad sandwich at HS.
[2022-07-28 03:00] VITALS: BP 114/66; PULSE 54; RESP 18; TEMP 36.6; O2SAT 96
--- NOTE | 2022-07-28 04:37 | PC.NURSE ---
Shift note: Pt has been sleeping very well tonight without SOB. No attempt to go to the bathroom was made. Pt has been on 3L of oxygen and O2 this morning was 96%. Denied any pain, cough and SOB.
[2022-07-28 07:00] VITALS: BP 128/68; PULSE 80; RESP 36; TEMP 36.3; O2SAT 92
[2022-07-28] MEDS: predniSONE 20 MG TABLET 60 MG PO (07:50)
[2022-07-28] MEDS: IPRAT-ALBUT 0.5-2.5 MG/3 ML NEB 1 NEB IH ×4 (07:52→23:55)
--- NOTE | 2022-07-28 07:57 | PC.NURSE ---
RR 36 upon waking patient up for AM assessment, duo neb given with prednisone. 02 sats 90-91% on 2L per NC
[2022-07-28] MEDS: METOPROLOL TARTRATE 25 MG TABLET PO ×2 (09:23→21:18)
[2022-07-28] MEDS: DOXYCYCLINE HYCLATE 100 MG CAPSULE PO ×2 (09:23→21:19)
[2022-07-28] MEDS: SODIUM CHLORIDE 0.9 % (FLUSH) 10 ML SYRINGE 5 ML IVF ×2 (09:24→21:19)
[2022-07-28] MEDS: OSELTAMIVIR 30 MG CAPSULE PO ×2 (09:24→21:18)
[2022-07-28] MEDS: ENOXAPARIN 40 MG/0.4 ML INJ SUBCUT (09:24)
[2022-07-28 11:00] VITALS: BP 147/72; PULSE 68; RESP 20; TEMP 36.4; O2SAT 92
--- NOTE | 2022-07-28 14:36 | PC.NURSE ---
PT SATTING BETTER TODAY ON 2L - 94-95%. PT CHRONICALLY ON 2L. DUO NEBS GIVEN X2 TODAY. PLAN FOR PATIENT TO BE WOKEN DURING NIGHT FOR NEBS WELL D/T WAKING UP IN RESPIRATORY DISTRESS. RR THIS AM 36, WHICH DECREASED TO 20-22 AFTER NEB AND RESCUE INHALER. LS WHEEZES. BM TODAY. INDEP IN ROOM. PLEASANT AND COOPERATIVE.
[2022-07-28] MEDS: ACETAMINOPHEN 325 MG TABLET 975 MG PO (15:22)
[2022-07-28 16:00] VITALS: BP 153/85; PULSE 80; RESP 22; TEMP 36.4; O2SAT 94
--- NOTE | 2022-07-28 17:40 | PM.IMPN1 ---
Progress Note: A&P Assessment and plan (1) Acute on chronic respiratory failure with hypoxia and hypercapnia: Problem details: - secondary to influenza and COPD exacerbation - typically wears supplemental oxygen at 2 L per nasal cannula - back to baseline O2 needs Status: Acute (2) Influenza A: Problem details: - Tamiflu day 3/5 Status: Acute (3) Acute exacerbation of chronic obstructive pulmonary disease: Problem details: Getting DuoNebs, p.r.n. albuterol nebs, Spiriva, high-dose daily prednisone and Zosyn. Status: Acute (4) Chronic obstructive pulmonary disease: Problem details: - GOLD D - Has seen [facility] in the past - on chronic daily prednisone Status: Chronic (5) Leukoplakia of oral mucosa/tongue: Problem details: Right lateral tongue Recommend to establish and follow up with dentist as an outpatient for leukoplakia. Status: Acute (6) Congestive heart failure: Problem details: EF of 50-55% on 2016 TTE Status: Chronic Assessment and Plan: Stable Plan This is a 72-year-old female with chronic oxygen and prednisone dependent COPD came in with an acute on chronic respiratory failure complicated by influenza infection. She is on day 3 of Tamiflu, high-dose steroids, p.r.n. neb treatments, and vibratory pep. RT has seen her in consult. I have reviewed the order for nebs and in fact scheduled a midnight neb and again at 4:00 a.m.. She remains on oral doxycycline. Anticipate probable discharge home tomorrow. Continue SCDs with low-dose nightly Lovenox for VTE prophylaxis. Subjective Time Seen by Provider: 09:08 Date Seen: 07/28/22 Interval history: Sonia says that she did not get her 3:00 a.m. neb last night. She says she again had a rough morning, but overall is feeling better today. We talked about going home, but she says she just does not feel ready yet because of the rough morning again. We talked about the possibility of going home tomorrow and she thought that might be good to shoot for that. Exam Narrative: Exam Narrative: General: No respiratory distress. Able to talk in complete sentences. Awake, alert, oriented x3. No pallor. No jaundice. Cardiovascular: Regular rate and rhythm. No murmurs, gallops, or rubs. Respiratory: Musical with inspiratory and expiratory wheezes. About the same as yesterday. No crackles. Const: Vital Signs, click to edit/add: Vital Signs - 24 hr 07/27/22 19:00 07/27/22 23:00 07/27/22 23:00 Temperature 98.6 F Pulse Rate [Pulse Oximeter] Pulse Rate [Right] 92 Respiratory Rate 24 24 Blood Pressure [Le ft Arm] 159/96 H Pulse Oximetry 94 90 Oxygen Delivery Me thod Nasal Cannula Oxygen Flow Rate 3 07/27/22 23:00 07/27/22 23:00 07/28/22 03:00 Temperature 98.1 F 97.9 F Pulse Rate [Pulse Oximeter] 77 54 L Pulse Rate [Right] Respiratory Rate 20 20 18 Blood Pressure [Le ft Arm] 138/109 H 114/66 Pulse Oximetry 90 90 96 Oxygen Delivery Me thod Nasal Cannula Nasal Cannula Nasal Cannula Oxygen Flow Rate 3 3 3 07/28/22 07:00 07/28/22 07:00 07/28/22 07:00 Temperature 97.3 F L Pulse Rate [Pulse Oximeter] 80 Pulse Rate [Right] Respiratory Rate 36 H 36 H Blood Pressure [Le ft Arm] 128/68 Pulse Oximetry 92 92 92 Oxygen Delivery Me thod Nasal Cannula Nasal Cannula Oxygen Flow Rate 2 2 07/28/22 07:00 07/28/22 11:00 07/28/22 16:00 Temperature 97.5 F L Pulse Rate [Pulse Oximeter] 80 68 Pulse Rate [Right] Respiratory Rate 36 H 20 Blood Pressure [Le ft Arm] 147/72 H Pulse Oximetry 92 94 Oxygen Delivery Me thod Nasal Cannula Oxygen Flow Rate 2 07/28/22 16:00 07/28/22 16:00 Temperature 97.5 F L Pulse Rate [Pulse Oximeter] 80 Pulse Rate [Right] Respiratory Rate 22 Blood Pressure [Le ft Arm] 153/85 H Pulse Oximetry 94 94 Oxygen Delivery Me thod Nasal Cannula Nasal Cannula Oxygen Flow Rate 2 2 Documenting provider has reviewed patient's vital signs: yes
[2022-07-28 20:30] VITALS: BP 164/85; PULSE 74; RESP 20; TEMP 36.7; O2SAT 91
--- NOTE | 2022-07-28 22:35 | PC.NURSE ---
Shift Summary: Patient pleasant and cooperative. Up independently in room. O2 @ 2L/NC, last time patient was up to bathroom stated she didn't feel SOB like other times. Expiratory wheeze noted, relieved with PRN neb. Vitals stable and WNL. C/o pain in her lower back earlier, relieved with PRN acetaminophen.
[2022-07-28 23:50] VITALS: BP 163/96; PULSE 69; RESP 20; TEMP 36.5; O2SAT 92
[2022-07-29] VITALS (7 sets, daily range): BP systolic 126–179; BP diastolic 59–96; PULSE 65–97; RESP 20; TEMP 36.6–36.7; O2SAT 91–94
[2022-07-29] MEDS: ALBUTEROL INHALER 2 PUFF IH (00:03)
[2022-07-29] MEDS: IPRAT-ALBUT 0.5-2.5 MG/3 ML NEB 1 NEB IH ×3 (04:25→12:27)
[2022-07-29] MEDS: HYDRALAZINE HCL 20 MG/ML inj 10 MG IVP (05:46)
--- NOTE | 2022-07-29 06:37 | PC.NURSE ---
Shift note: The pt has been on 2L of oxygen via NC with Spo2 in the 90s, Duo Neb has been given as order. The pt has been C/O short of breath with exertion and wheezy. BP at 0440 was 179/94, HR 71, RR 20, the pt denied chest pain, dizzy, short of breath at rest and other distress. Bud was called about BP; an order of 10mg IVP Hydralazine was received and given ; Rechecked BP 30 minutes later BP 144/69, HR 76. The pt continued denying any acute distress .
[2022-07-29] MEDS: OSELTAMIVIR 30 MG CAPSULE PO (08:35)
[2022-07-29] MEDS: predniSONE 20 MG TABLET 60 MG PO (08:36)
[2022-07-29] MEDS: ENOXAPARIN 40 MG/0.4 ML INJ SUBCUT (08:36)
[2022-07-29] MEDS: METOPROLOL TARTRATE 25 MG TABLET PO (08:36)
[2022-07-29] MEDS: DOXYCYCLINE HYCLATE 100 MG CAPSULE PO (08:36)
[2022-07-29] MEDS: SODIUM CHLORIDE 0.9 % (FLUSH) 10 ML SYRINGE 5 ML IVF (08:37)
--- NOTE | 2022-07-29 11:21 | PM.DS1 ---
DS: Providers Provider Time Seen by Provider: 08:11 Date Seen: 07/29/22 Date of admission: 07/25/22 00:44 Primary care physician: Palomo Davis MD Admitting Clinician: Bailey Garcia MD Consults: 07/25/22 00:44 Consult to Respiratory Therapy [CONS] Routine Comment: Reason(s) for RT Consult:: Consult Attending Physician on discharge: Nuria Plaza MD Date of Discharge: 07/29/22 DS: Diagnosis Discharge Diagnosis (1) Acute on chronic respiratory failure with hypoxia and hypercapnia: Status: Acute Problem details: - secondary to influenza and COPD exacerbation - typically wears supplemental oxygen at 2 L per nasal cannula - back to baseline O2 needs (2) Influenza A: Status: Acute (3) Acute exacerbation of chronic obstructive pulmonary disease: Status: Acute (4) Chronic obstructive pulmonary disease: Status: Chronic Problem details: - GOLD D - Has seen [facility] in the past - on chronic daily prednisone (5) Long-term current use of steroids: Status: Chronic (6) Sinus tachycardia: Status: Chronic Problem details: - chronic, on Metoprolol BID as an outpatient. Missed dose 07/24 HS, given IV Metoprolol in ED (7) Leukoplakia of oral mucosa/tongue: Status: Acute Problem details: Right lateral tongue Recommend to establish and follow up with dentist as an outpatient for leukoplakia. (8) Congestive heart failure: Status: Chronic Problem details: EF of 50-55% on 2016 TTE (9) Hyperlipidemia: Status: Chronic DS: Summary Status at Discharge Cognitive/behavioral status at discharge: This is a 72-year-old female on chronic daily prednisone for severe COPD who presented through the emergency department for concern of worsening dyspnea and high fever. On arrival she was noted to be to gait think and tachycardic. EKG revealed sinus tachycardia. She has a known history of chronic sinus tachycardia. She tested positive for influenza A. She was admitted to the hospital, started on Tamiflu, high-dose steroids, home COPD medications as well as p.r.n. neb treatments. She was also started on Zosyn given severe pulmonary disease with daily prednisone use. She slowly improved over the next few hospital days. Overnight she had episode asymptomatic hypertension. She was quite anxious about this this morning. She also had an episode early this morning where her oxygen while off while she was going to the bathroom and it took a little while for her to recover. By the time I saw her this morning, she was feeling better and noted that she felt better than she had previously during this hospital stay. She was comfortable with going home later today. Her lung exam had also improved and she was moving more air with few were expiratory wheezes. I have asked her to follow-up with her cash controller as well as her primary care provider. She will be on a prednisone taper and finish out a course of doxycycline. Have also scheduled DuoNebs at night and she may wean off of these as she improves. Functional status at discharge: independent ambulation Overall status at discharge: patient is progressing back to baseline Time Spent with Patient Time attestation: Total time spent providing and/or coordinating discharge services: Exam Narrative: Exam Narrative: General: No respiratory distress. Able to talk in complete sentences. Awake, alert, oriented x3. No pallor. No jaundice. Cardiovascular: Regular rate and rhythm. No murmurs, gallops, or rubs. Respiratory: Better air movement today with no inspiratory wheezes, scattered expiratory wheezes present. No crackles. Const: Vital Signs, click to edit/add: Vital Signs - 24 hr 07/28/22 16:00 07/28/22 16:00 07/28/22 16:00 Temperature 97.5 F L Pulse Rate [Pulse Oximeter] 80 Respiratory Rate 22 Blood Pressure [Le ft Arm] 153/85 H Pulse Oximetry 94 94 94 Oxygen Delivery Me thod Nasal Cannula Nasal Cannula Oxygen Flow Rate 2 2 07/28/22 20:30 07/28/22 23:50 07/28/22 23:50 Temperature 98.1 F Pulse Rate [Pulse Oximeter] 74 69 Respiratory Rate 20 20 Blood Pressure [Le ft Arm] 164/85 H Pulse Oximetry 91 92 Oxygen Delivery Me thod Nasal Cannula Oxygen Flow Rate 2 07/28/22 23:50 07/28/22 23:50 07/29/22 04:40 Temperature 97.7 F 98 F Pulse Rate [Pulse Oximeter] 69 71 Respiratory Rate 20 20 20 Blood Pressure [Le ft Arm] 163/96 H 179/94 H Pulse Oximetry 92 92 91 Oxygen Delivery Me thod Nasal Cannula Nasal Cannula Nasal Cannula Oxygen Flow Rate 2 2 2 07/29/22 06:20 07/29/22 08:42 07/29/22 08:43 Temperature Pulse Rate [Pulse Oximeter] 65 Respiratory Rate 20 20 Blood Pressure [Le ft Arm] 144/59 H Pulse Oximetry 92 94 94 Oxygen Delivery Me thod Nasal Cannula Nasal Cannula Oxygen Flow Rate 2 2 07/29/22 08:43 07/29/22 11:00 Temperature 98.1 F 97.9 F Pulse Rate [Pulse Oximeter] 94 86 Respiratory Rate 20 20 Blood Pressure [Le ft Arm] 151/96 H 170/89 H Pulse Oximetry 94 94 Oxygen Delivery Me thod Nasal Cannula Nasal Cannula Oxygen Flow Rate 2 2 Documenting provider has reviewed patient's vital signs: yes DS: Data Data Completed and Pending Completed studies during hospitalization: Ordering Physician: Lacho Sandoval M.D. Date of Service: 07/24/22 Procedure(s): XR chest 1V portable Accession Number(s): [id number] cc: Palomo Davis M.D.; Lacho Sandoval M.D.~ For Patients: As a result of the Cures Act, medical imaging exams and procedure reports are released immediately into your electronic medical record. You may view this report before your referring provider. If you have questions, please contact your health care provider. INDICATION: Shortness of breath TECHNIQUE: Single view chest. Comparison 01/14/2020 chest x-ray FINDINGS: The lungs are clear. The heart, mediastinum and pulmonary vessels are of normal size. There is no evidence of pleural disease. IMPRESSION: Negative chest. Dictated by Leslie Portillo MD @ 07/25/2022 12:40:26 AM (Electronically Signed) 07/24/2022 11:15 p.m. EKG: Sinus tachycardia, 137 beats per minute. Left axis deviation. Abnormal EKG. Discharge Plan Discharge Disposition: Home, Self-Care Date of Admission: 07/25/22 00:44 Attending Provider on Discharge: Nuria Plaza Primary Care Provider: Palomo Davis Condition: Improved Anticipated Discharge Date/Time: 07/29/22 14:00 Discharge Medications: New prednisone 20 mg Tablet See Rx Instructions .ROUTE .COMPLEX Qty: 25 0RF Rx Instructions: 40 mg PO daily for 1 week, then 20 mg po daily for 1 week, then 10 mg PO daily for 1 week, then resume usual 5 mg po daily. oseltamivir [Tamiflu] 30 mg Capsule 30 mg PO BID Qty: 1 0RF Continued budesonide-formoterol 160-4.5 mcg/actuation HFA aerosol inhaler 2 puff inhalation BID Qty: 3 3RF metoprolol tartrate 25 mg tablet 25 mg PO BID Qty: 180 3RF azithromycin 250 mg tablet 250 mg PO DAILY [id number]-VL-acetaminophen 7.5-60-30-1,000 mg/30 mL liquid 5 ml PO HS PRN phenylephrine HCl 0.5 % spray,non-aerosol 1 spray intranasal Q8H PRN ipratropium-albuterol 0.5 mg-3 mg(2.5 mg base)/3 mL solution for nebulization 1 ml inhalation QID Qty: 360 11RF Rx Instructions: Use also at Midnight and 0400. As symptoms improve, can wean off of nightly nebs. albuterol sulfate 90 mcg/actuation HFA aerosol inhaler 2 puff inhalation Q4-6H PRN (Reason: shortness of breath or wheezing) Qty: 8.5 1RF Held prednisone 5 mg tablet 5 mg PO DAILY Hold Instructions: Resume on 08/19/22. Discharge Orders: Discharge Order (Routine); Ordered 07/29/22 Ordered By: Nuria Plaza Patient Education: COPD (Chronic Obstructive Pulmonary Disease) (DC), Chronic Lung Disease and Infection Prevention (DC) Additional Instructions: - Continue O2 via NC at 2L/min continuous. - Establish with dentist for right tongue leukoplakia. - Follow up with cash controller 1-2 months. - Follow up with PCP early next week. Activity Level: Activity as Tolerated Discharge Diet: Regular Follow Up Appointments: Palomo Davis MD [Primary Care Provider] - (early next week) Forms: Differential Info Instructions
--- NOTE | 2022-07-29 14:22 | PC.NURSE ---
Discharge: Patient pleasant and cooperative. Up independently in room, denies pain today. Vitals stable, some SOB around noon after ambulating, relieved with PRN neb. IV removed, discharge instructions and follow ups reviewed. New medication orders discussed. Patient discharged from floor @ 1412 via wheelchair, son here to take home.
== END 2022-07-29 14:12 | disposition home or self-care (01) | DRG 189 ==
LOC: ED 07-25 00:20 → MEDSURG 07-25 00:58
PROVIDERS: Family Medicine; Admitting Provider Family Medicine; Emergency Provider Family Medicine; PCP Family Medicine; Visit Provider Family Medicine
DX: J96.22 Acute and chronic respiratory failure with hypercapnia (principal); J44.1 Chronic obstructive pulmonary disease with (acute) exacerbation; J96.21 Acute and chronic respiratory failure with hypoxia; J10.1 Influenza due to other identified influenza virus with other respiratory manifestations; R00.0 Tachycardia, unspecified; K13.21 Leukoplakia of oral mucosa, including tongue; E78.5 Hyperlipidemia, unspecified; F41.9 Anxiety disorder, unspecified; Z99.81 Dependence on supplemental oxygen; Z79.52 Long term (current) use of systemic steroids; I11.0 Hypertensive heart disease with heart failure; I50.9 Heart failure, unspecified
CPT/HCPCS: 36415; 36600; 71045; 80048; 81001; 82803; 83605; 83880; 84145; 84484; 85025; 85379; 85610; 85730; 86140; 87040; 87086; 87502; 87634; 87635; 93005; 94640; 94664; 94761; 99285; A9270; J0360; J1650; J2543; J2930; J7050; J7512

== ENCOUNTER 2022-09-09 15:24 | Outpatient (CLI) | payer MEDICARE, OTHER, SELFPAY ==
[2022-09-09 18:16] LABS: Mononuclear WBC Body Fluid* 4 %; Polynuclear WBC Body Fluid* 96 %; RBC, Body Fluid* 4000 Cells/uL; WBC, Body Fluid* 8498 Cells/uL
[2022-09-09 18:57] LABS: BF Clarity* Slightly Cloudy; BF Color Xanthochromic; BF Total Volume* 15
== END 2022-09-09 15:25 | disposition home or self-care (01) ==
PROVIDERS: PCP Family Medicine; Visit Provider Family Medicine
DX: M70.22 Olecranon bursitis, left elbow (principal)
CPT/HCPCS: 87070; 87186; 89051; 89060

== ENCOUNTER 2023-05-14 09:25 | Outpatient (CLI) | payer MEDICARE, OTHER, SELFPAY ==
--- NOTE | 2023-05-14 09:45 | CRLHL7_ITS ---
For Patients: As a result of the Century Cures Act, medical imaging exams and procedure reports are released immediately into your electronic medical record. You may view this report before your referring provider. If you have questions, please contact your health care provider. BILATERAL SCREENING MAMMOGRAM WITH COMPUTER-AIDED DETECTION AND TOMOSYNTHESIS TECHNIQUE: CC and MLO views were obtained. These mammographic images have been obtained using full-field digital technique. These mammographic images were interpreted with the benefit of computer-aided detection. Breast Tomosynthesis was used in this interpretation. COMPARISON FILM: 04/10/19, 06/20/15, 04/04/14. FINDINGS: The breasts are heterogeneously dense, which may obscure small masses IMPRESSION: There is no radiographic evidence for malignancy. ASSESSMENT: BI-RADS Category 1: Negative RECOMMENDATION: Routine screening mammogram in 1 year. A lay language report of this examination will be provided to the patient. Jass Galindo M.D. Diagnostic Radiologist [email or web address] CHADD/arthur Transcribed: 5:57 p.mendez gibson/Dictated by: Jass Galindo MD @ 05/14/2023 12:58:00 PM (Electronically Signed)
== END 2023-05-14 09:26 | disposition home or self-care (01) ==
LOC: MAMMO 09:27
PROVIDERS: PCP Family Medicine; Visit Provider Family Medicine
DX: Z12.31 Encounter for screening mammogram for malignant neoplasm of breast (principal); R92.2 Inconclusive mammogram
CPT/HCPCS: 77063; 77067

== ENCOUNTER 2024-06-15 11:08 | Outpatient (CLI) | payer MEDICARE, OTHER, SELFPAY ==
--- OUTSIDE RECORDS SUMMARY | 2024-06-19 07:39 | XMS_ITS | Clinical Summary ---
Author Organization [facility] Address [place], [place] [address] Care Team Providers Care Body Maker Machine Setter Name Role Phone Palomo Davis MD Primary Care Provider [phone] Allergies No known active allergies Medications Medication Sig Dispensed Refills Start Date End Date Status PROAIR HFA 90 mcg/actuation inhaler 05/27/2015 Act rafael SYMBICORT 80-4.5 mcg/actuation (80-4.5 mcg each actuation) inhaler 05/15/2015 Active MICROSPACER 05/15/2015 Active albuterol-ipratropium (DUONEB) (2.5-0.5 mg) in 3 mL NEBULIZATION solution 06/03/2015 Active predniSONE (DELTASONE) 5 mg tablet Take 1 tablet by mouth once daily with a meal. 0 06/27/2018 Active Active Problems Problem Noted Date Diagnosed Date Hyperopia of both eyes with astigmatism and pres byopia 01/23/2021 Nuclear senile cataract of both eyes 06/27/2018 Family History Medical History Relation Name Comments Genetic Other Father Diabetes Relation Name Status Comments Other Social History Tobacco Use Types Packs/Day Years Used Date Smoking Tobacco: Former Cigarettes 0.5 20 1 - 06/07/2014 Smokeless Tobacco: Never Comments:Smoking History Pac ks/day: .5ppd Alcohol Use Standard Drinks/Week Comments Not Asked 0 (1 standard drink = 0.6 oz pur e alcohol) Sex and Gender Information Value Date Recorded Sex Assigned at Not on file Gender Identity Not on file Sexual Orientation Not on file Obstetrics History Last Filed Vital Signs Vital Sign Reading Time Taken Comments Blood Pressure 124/79 06/27/2018 2:58 PM EDUCATIONAL ADMINISTRATOR Pulse 91 06/27/2018 2:58 PM EDUCATIONAL ADMINISTRATOR Temperature - - Respiratory Rate - - Oxygen Saturation - - Inhaled Oxygen Concentration - - Weight - - Height - - Body Mass Index - - Plan of Treatment Health Maintenance Due Date Last Done Comments Tdap 01/04/1963 Depression screening for age 12+ [...] 01/04/2017 Pneumococcal series for age 65+ (1 of 1 - PCV) 01/04/2017 COVID-19 vaccine series (2023- season) 2024 06/14/2023, 11/05/2020, 10/15/2020 Influenza for age 65+ 04/16/2024 Care Teams Body Maker Machine Setter Relationship Specialty Start Date End Date Palomo Davis MD [address] [place] [id number] PCP - General Family Practice 06/27/18
== END 2024-06-15 11:09 | disposition home or self-care (01) ==
PROVIDERS: PCP Family Medicine; Referring Provider Family Medicine; Visit Provider Family Medicine
DX: E78.5 Hyperlipidemia, unspecified (principal); I10 Essential (primary) hypertension
CPT/HCPCS: 80053; 80061

== ENCOUNTER 2024-12-29 13:25 | Outpatient (CLI) | payer MEDICARE, OTHER, SELFPAY ==
--- NOTE | 2024-12-29 13:45 | MR_ITS ---
[facility] [address] [facility] [address] Phone:?[phone] Fax:?[phone] Referring Physician Information: Ladarius Rios M.D. [address] [facility] [address] Phone:?[phone] Fax:?[phone] Patient:Flaca Almaraz D.O.B:?1950 Sex:?Female Phone:?[phone] [facility] MRN:?[id number] Exam Date:?12/29/2024 EXAM: MRI EXAMINATION OF THE LEFT SHOULDER CLINICAL INFORMATION: Left shoulder pain. No specific injury. Possible rotator cuff tear. TECHNICAL INFORMATION: Coronal STIR as well as axial, sagittal and coronal PD and T2-weighted images were acquired. No prior studies for comparison. INTERPRETATION: Bones: There is no Hill-Sachs impaction deformity. No other occult fracture or osseous contusion. No other bone marrow edema pattern. Rotator Cuff: There are mild changes of supraspinatus tendinopathy. Series 5 image 9 demonstrates a 2 to 3 mm intrasubstance partial tear involving the anterior tendon insertion. Mild to moderate infraspinatus tendinopathy. The teres minor tendon is intact. The subscapularis tendon is intact. No appreciable rotator cuff muscle belly atrophy. Coracoacromial arch: There is no discrete subacromial osseous spur. The bony acromiohumeral interval is a 6 mm. There is no thickening identified of the coracoacromial ligament. Acromioclavicular joint: Mild to moderate AC joint DJD. No deformity of the underlying supraspinatus tendon. Mild edema signal within the subacromial/subdeltoid bursa areas. Biceps tendon: The long head biceps tendon is intact and nondisplaced from the bicipital groove. No evidence for a tendon tear or appreciable changes of tendinopathy. Glenohumeral joint and labrum: There is a large glenohumeral joint effusion. Synovitis within the joint, with additional suspected small loose bodies/loose body debris within the subscapularis recess area. There are changes of chondromalacia including areas of near full-thickness loss along the glenohumeral joint. There is tearing through the superior aspect of the labrum. Fraying/mild tearing involves the anteroinferior labrum. No discrete paralabral cyst is identified. CONCLUSION: 1. Mild supraspinatus and mild to moderate infraspinatus tendinopathy. There is a small intrasubstance partial tear of the far anterior supraspinatus tendon insertion. 2. Mild to moderate AC joint DJD with mild narrowing of the acromiohumeral interval. Mild subacromial/subdeltoid bursitis. 3. 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 No associated subchondral signal abnormality. 4. Large glenohumeral joint effusion. Associated synovitis, with additional suspected small loose bodies/loose body debris within the subscapularis recess area. 5. Tearing through the superior labrum. The adjacent long head biceps tendon is normally intact. KES Electronically signed on 12/29/2024 5:49:00 PM by Almas Alamo M.D.
== END 2024-12-29 13:26 | disposition home or self-care (01) ==
PROVIDERS: PCP Family Medicine; Visit Provider Orthopaedic Surgery Sports Medicine
DX: M25.512 Pain in left shoulder (principal); M75.102 Unspecified rotator cuff tear or rupture of left shoulder, not specified as traumatic; M75.52 Bursitis of left shoulder; M94.212 Chondromalacia, left shoulder; M25.412 Effusion, left shoulder; S43.432A Superior glenoid labrum lesion of left shoulder, initial encounter; M12.812 Other specific arthropathies, not elsewhere classified, left shoulder
CPT/HCPCS: 73221

== ENCOUNTER 2025-05-09 15:23 | Outpatient (CLI) | payer MEDICARE, OTHER, SELFPAY | END 2025-05-09 15:24 | disposition home or self-care (01) | LOC: NFLDREF 05-19 03:32 | PROVIDERS: PCP Family Medicine; Referring Provider Family Medicine; Visit Provider Family Medicine | DX: E78.5 Hyperlipidemia, unspecified (principal); Z00.00 Encounter for general adult medical examination without abnormal findings | CPT/HCPCS: 80053; 80061 ==